=== PATIENT | female | born 1990 | race Caucasian/White ===

== ENCOUNTER 2017-08-12 13:27 | Emergency (ER) | payer OTHER ==
[~2017-08-12] VITALS: Ht 172.7 cm; Wt 72.6 kg
[~2017-08-12 13:27] MED LIST: BISACODYL10 MG PR; DOCUSATE SODIU100 MG PO; MILK OF MAGNESI30 ML PO; MOMETASONE0.05 MG/Ac NASB; PERCOCET MONOGRA5 MG PO; SENOKOT8.6 MG PO; TRAMADOL50 MG PO; TYLENOL #31 TAB PO; TYLENOL TAB 32325 MG PO; ZOFRAN4 M1 SL
--- NOTE | 2017-08-12 15:43 | ED GENERAL ADULT ---
History of Present Illness General Chief Complaint: General Adult Stated Complaint: PT BEEN VOMITING ALL NIGTH Source: patient Exam Limitations: no limitations Vital Signs & Intake/Output Vital Signs & Intake/Output Vital Signs Date Time Temp Pulse Resp B/P B/P Pulse O2 O2 Flow FiO2 Mean Ox Delivery Rate 08/12 2041 99.0 66 16 116/70 100 Room Air 08/12 1938 99.4 62 16 112/66 100 Room Air 08/12 1605 98.4 77 20 129/77 100 Room Air 08/12 1545 Room Air 08/12 1329 96.6 90 18 121/81 97 Room Air Allergies Coded Allergies: MDX - Hydroxyzine (From VISTARIL) (Mild, RASH 04/24/15) MDX - Nsaid (NSAID) (Mild, ITCHY AND HEADACHE 04/24/15) MDX - Sertraline (SERTRALINE) (Mild, RASH 04/24/15) MDX - Homeopathic Substance (From Cayenne) (HIVES, FACIAL SWELLING 04/24/15) MDX - Ibuprofen (From MOTRIN) (RASH 04/24/15) MDX - Latex (LATEX) (RASH 04/24/15) MDX - Methylphenidate (From CONCERTA) (MOUTH SWELLS, MIGRAINES, HIVES 04/24/15) MDX - Nickel (Nickel) (HIVES, FACIAL SWELLING 04/24/15) Triage Note: 26 Y/O FEMALE C/O N/V "ALL NIGHT". REPORTS DIFFUSE ABDOMINAL PAIN. CURRENTLY HAVING MENSES THOUGH REPORTS CHANCE OF . AFEBRILE. Triage Nurses Notes Reviewed? yes Onset: Abrupt Duration: day(s): Timing: recent history : No Patient currently breastfeeds: No HPI: 08/12/17 26-year-old female presents to the emergency department complaining of right lower quadrant abdominal pain. The patient states she's had abdominal pain for the past several days. She was seen in another emergency department approximately one month ago. She denies any fever. She said she had a test that was done that was indeterminate at that time. (Alber Torres DO) Reconcile Medications Hyoscyamine Sulfate (Levsin-Sl) 0.125 MG TAB.SUBL 1-2 TAB SL Q4P PRN abdominal cramps Ondansetron (Zofran Odt) 4 MG TAB.RAPDIS 1 TAB SL TID PRN nausea Ondansetron (Zofran Odt) 4 MG ODT 1 TAB SL Q4-6 PRN NAUSEA (Denzel SHAH,Charlie) Past History Travel History Traveled to [place] past 21 day No Medical History Any Pertinent Medical History? see below for history Neurological: NONE EENT: NONE Cardiovascular: NONE Respiratory: NONE Gastrointestinal: NONE Hepatic: NONE Renal: NONE Musculoskeletal: NONE Psychiatric: NONE Endocrine: NONE Pneumonia Vaccine: 01/03/14 Tetanus Vaccine: 01/23/12 Surgical History Surgical History: LAPAROSCOPIC iud REMOVAL Psychosocial History What is your primary language Korean Tobacco Use: Quit >30 days ago Family History Hx Contributory? No (Alber Torres DO) Review of Systems Review of Systems Constitutional: Denies: fever. EENTM: Denies: visual changes. Respiratory: Denies: short of breath. Cardiovascular: Denies: chest pain. GI: Reports: abdominal pain. Genitourinary: Reports: no symptoms. Musculoskeletal: Reports: no symptoms. Skin: Reports: no symptoms. Neurological/Psychological: Reports: no symptoms. Hematologic/Endocrine: Reports: no symptoms. Immunologic/Allergic: Reports: no symptoms. (Alber Torres DO) Physical Exam Physical Exam General Appearance: well developed/nourished, alert, awake, anxious Head: atraumatic, normal appearance Eyes: Bilateral: normal appearance, PERRL, EOMI. Ears, Nose, Throat: normal pharynx, normal ENT inspection Neck: normal inspection, supple Respiratory: normal breath sounds, chest non-tender, no respiratory distress Cardiovascular: regular rate/rhythm Peripheral Pulses: 4+ radial (R), 4+ radial (L) Gastrointestinal: soft, tenderness rlq Back: normal inspection, normal range of motion Extremities: normal inspection, normal range of motion Neurologic/Psych: no motor/sensory deficits, awake, alert, oriented x 3 Skin: intact, normal color, warm/dry Core Measures ACS in differential dx? No CVA/TIA Diagnosis: No Sepsis Present: No Sepsis Focused Exam Completed? No (Alber Torres DO) Progress Differential Diagnoses I considered the following diagnoses in my evaluation of the patient: [ Appendicitis, cervicitis, UTI, pyelonephritis, viral syndrome, dysmenorrhea] Plan of Care: Orders Procedure Date/time Status Add-on Test (ER Only) 08/12 1845 Active COMPREHENSIVE METABOLIC PANEL 08/12 1658 Complete CBC WITHOUT DIFFERENTIAL 08/12 1658 Complete Add-on Test (ER Only) 08/12 1653 Active CHLAMYDIA-GC DNA PROBE 08/12 1555 Active URINE 08/12 1334 Complete URINALYSIS 08/12 1334 Complete Laboratory Tests 08/12/17 1726: Anion Gap 15, Estimated GFR > 60, BUN/Creatinine Ratio 32.0 H, Glucose 95, Calcium 9.2, Total Bilirubin 0.8, AST 32, ALT 56 H, Alkaline Phosphatase 76, Total Protein 7.6, Albumin 4.6, Globulin 3.0, Albumin/Globulin Ratio 1.5, CBC w Diff NO MAN DIFF REQ, RBC 4.32, MCV 88.9, MCH 29.8, RDW 13.6, MPV 7.8, Gran % 75.4 H, Lymphocytes % 18.5 L, Monocytes % 4.8, Eosinophils % 0.9, Basophils % 0.4, Absolute Granulocytes 4.1, Absolute Lymphocytes 1.0 L, Absolute Monocytes 0.3, Absolute Eosinophils 0, Absolute Basophils 0, PUBS MCHC 33.5 08/12/17 1555: Urine Color YEL, Urine Clarity CLDY H, Urine pH 6.0, Ur Specific [place] >= 1.030, Urine Protein TRACE H, Urine Ketones 15 H, Urine Nitrite NEG, Urine Bilirubin NEG, Urine Urobilinogen 0.2, Ur Leukocyte Esterase NEG, Ur Microscopic SEDIMENT EXAMINED, Urine RBC >75 H, Urine WBC 3-5 H, Ur Epithelial Cells FEW, Urine Bacteria MOD H, Urine Mucus FEW, Urine Hemoglobin LARGE H, Urine Glucose NEG, Urine Test NEGATIVE Microbiology 08/12 1554 URINE ROUT: GC DNA Probe - RECD 08/12 1554 URINE ROUT: Chlamydia DNA Probe (ARASH) - RECD Initial ED EKG: none (Alber Torres DO) Diagnostic Imaging: Viewed by Me: CT Scan. Discussed w/RAD: CT Scan. Radiology Impression: no acute abnormality Comments: Updated with diagnostics. No more nausea, requests crackers and juice. Abdomen soft, NT. Complains of upper back pain about scapula that was present for the last 3 days with n/v. (Denzel SHAH,Charlie) Departure Departure Disposition: HOME OR SELF CARE Condition: Stable Clinical Impression Primary Impression: Abdominal pain Referrals: Unknown (PCP/Family) Departure Forms: Customer Survey General Discharge Information Comments PATIENT: CASSANDRA RUBY PRESENT AGE: 26 PATIENT ACCOUNT NO: [id number] : 91 LOCATION: [facility] ORDERING PHYSICIAN: Alber Torres DO SERVICE DATE: 08/12/17 EXAM TYPE: CAT - CT ABD & PELVIS W IV CONTRAST EXAMINATION: CT ABDOMEN AND PELVIS WITH CONTRAST CLINICAL INFORMATION: Appendicitis lower abdominal pain COMPARISON: Abdominal ultrasound January 2012 TECHNIQUE: Multidetector volumetric imaging was performed of the abdomen and pelvis following IV administration of 95 mL of Optiray 320 intravenous contrast. Sagittal and coronal reformatted images were obtained on the technologist's workstation. DLP: 336 mGy-cm FINDINGS: LUNG BASES: The visualized lung bases are unremarkable. LIVER, GALLBLADDER, AND BILIARY TREE: The liver is normal in size, shape, and attenuation. No focal hepatic lesion or biliary ductal dilatation is present. The gallbladder is unremarkable with no evidence of radiopaque gallstones, gallbladder wall thickening, or obvious pericholecystic inflammatory changes. PANCREAS: Unremarkable. SPLEEN: Unremarkable. ADRENAL GLANDS: Unremarkable. KIDNEYS AND URETERS: The kidneys are normal in size, shape, and attenuation. No hydronephrosis, hydroureter, or calculi seen. No perinephric stranding. BLADDER: Unremarkable. GASTROINTESTINAL TRACT: Appendix normal. Large bowel normal. Small bowel normal. Stomach normal ABDOMINAL WALL: No significant hernia is appreciated. LYMPH NODES: Normal. VASCULAR: Unremarkable. PELVIC VISCERA: Unremarkable. OSSEOUS STRUCTURES: Unremarkable. IMPRESSION: Normal exam. No evidence for appendicitis. No etiology for patient's reported symptoms. DICTATED BY: Chau Chu MD DATE/TIME DICTATED:08/12/171918 ENVELOPE SEALER:SELWYN DATE/TIME TRANSCRIBED:08/12/171918 CONFIDENTIAL, DO NOT COPY WITHOUT APPROPRIATE AUTHORIZATION. <Electronically signed in Other Vendor System> SIGNED BY: Chau Chu MD 08/12 (Alber Torres DO) Departure Time of Disposition: 2016 Additional Instructions: Clear liquids for 12-24 hours until better Prescriptions: Current Visit Scripts Ondansetron (Zofran Odt) 1 TAB SL TID PRN nausea #10 TAB Hyoscyamine Sulfate (Levsin-Sl) 1-2 TAB SL Q4P PRN abdominal cramps #30 TAB (Denzel SHAH,Charlie) Critical Care Note Critical Care Note Critical Care Time: non-applicable (Alber Torres DO)
[2017-08-12 17:39] LABS: ABSOLUTE BASOPHIL COUNT 0 /CUMM (0.0-0.2); ABSOLUTE EOSINOPHIL COUNT 0 /CUMM (0.0-0.7); ABSOLUTE GRANULOCYTE CT 4.1 /CUMM (1.4-6.5); ABSOLUTE MONOCYTE COUNT 0.3 /CUMM (0.10-0.60); BASOPHIL % 0.4 % (0.0-2.0); EOSINOPHIL % 0.9 % (0-5); HEMATOCRIT 38.3 % (37-47); MEAN CORPUSCULAR HGB 29.8 PG (27.0-31.0); MEAN CORPUSCULAR HGB CONC 33.5 G/DL (33.0-37.0); MEAN CORPUSCULAR VOLUME 88.9 FL (81.0-99.0); MEAN PLATELET VOLUME 7.8 FL (7.4-10.4); PLATELET COUNT 259 /CUMM (130-400); RBC DISTRIBUTION WIDTH 13.6 % (11.5-14.5); RED BLOOD CELL CT 4.32 /CUMM (4.20-5.40); WHITE BLOOD CELL COUNT 5.5 /CUMM (4.8-10.8)
[2017-08-12 17:52] LABS: GRANULOCYTE % 75.4 % (42.2-75.2)
--- NOTE | 2017-08-12 19:28 | CT SCAN REPORT ---
EXAMINATION: CT ABDOMEN AND PELVIS WITH CONTRAST CLINICAL INFORMATION: Appendicitis lower abdominal pain COMPARISON: Abdominal ultrasound January 2012 TECHNIQUE: Multidetector volumetric imaging was performed of the abdomen and pelvis following IV administration of 95 mL of Optiray 320 intravenous contrast. Sagittal and coronal reformatted images were obtained on the technologist's workstation. DLP: 336 mGy-cm FINDINGS: LUNG BASES: The visualized lung bases are unremarkable. LIVER, GALLBLADDER, AND BILIARY TREE: The liver is normal in size, shape, and attenuation. No focal hepatic lesion or biliary ductal dilatation is present. The gallbladder is unremarkable with no evidence of radiopaque gallstones, gallbladder wall thickening, or obvious pericholecystic inflammatory changes. PANCREAS: Unremarkable. SPLEEN: Unremarkable. ADRENAL GLANDS: Unremarkable. KIDNEYS AND URETERS: The kidneys are normal in size, shape, and attenuation. No hydronephrosis, hydroureter, or calculi seen. No perinephric stranding. BLADDER: Unremarkable. GASTROINTESTINAL TRACT: Appendix normal. Large bowel normal. Small bowel normal. Stomach normal ABDOMINAL WALL: No significant hernia is appreciated. LYMPH NODES: Normal. VASCULAR: Unremarkable. PELVIC VISCERA: Unremarkable. OSSEOUS STRUCTURES: Unremarkable. IMPRESSION: Normal exam. No evidence for appendicitis. No etiology for patient's reported symptoms.
[2017-08-12] MEDS ORDERED: ZOFRAN ODT4 M1 SL (20:19)
[2017-08-12] MEDS ORDERED: LEVSIN-SL0.125 MG SL (20:19)
[2017-08-12 20:41] VITALS: BP 116/70
== END 2017-08-12 20:41 ==
LOC: ERH 13:27
PROVIDERS: Emergency Medicine
DX: R10.31 Right lower quadrant pain (principal)
CPT/HCPCS: 74177; 81001; 81025; 87491; 87591; 96374; 96375; J0131; J2405